=== PATIENT | male | born 1955 | race Caucasian/White ===

== ENCOUNTER 2023-10-03 09:30 | Emergency (ER) | payer MEDICARE, MEDICAID ==
[~2023-10-03] VITALS: Ht 175.3 cm; Wt 65.9 kg
[2023-10-03 11:07] VITALS: BP 150/76; PULSE 116; RESP 20; TEMP 98.7; O2SAT 96
[2023-10-03] MEDS ORDERED: MELO7.5T7 PO (11:50)
[2023-10-03] MEDS ORDERED: DexAMETHasone SOD PHOS 10MG/1ML VIAL INJ IM ONE (12:00)
[2023-10-03] MEDS ORDERED: LIDOCAINE 5% TOPICAL PATCH TOP ONE (12:00)
== END 2023-10-03 12:22 | disposition home or self-care (01) ==
LOC: ER 09:30
DX: M54.50 Low back pain, unspecified (principal)
CPT/HCPCS: 99283; J1100